=== PATIENT | female | born 2000 | race Two or more races ===

== ENCOUNTER 2020-11-16 16:43 | Outpatient (REF) | payer OTHER, SELFPAY | END 2020-11-16 16:44 | disposition home or self-care (01) | LOC: HO.LAB 16:43 | PROVIDERS: Visit Provider Nurse Practitioner Family | DX: R05 Cough (principal); Z20.822 Contact with and (suspected) exposure to COVID-19 | CPT/HCPCS: 36415; U0003 ==

== ENCOUNTER 2021-12-20 21:55 | Emergency (ER) | payer OTHER, MEDICAID, SELFPAY ==
--- NOTE | ~2021-12-20 | XR_ITS ---
EXAMINATION: XR HIP, RIGHT CLINICAL INFORMATION: Right hip pain COMPARISON: None TECHNIQUE: Single view pelvis with 2 additional views of the right hip. FINDINGS: Bones and soft tissues are normal. No fracture. Alignment is anatomic. Hip joint space is maintained. XR/XR hip RT min 2V IMPRESSION: Normal right hip.
[2021-12-20 22:00] VITALS: BP 121/66; PULSE 75; RESP 18; TEMP 36.8; O2SAT 97; BMI 46.8
--- NOTE | 2021-12-20 23:57 | ED.LOWEXIN ---
HPI - Extremity Injury (Lower) General Chief Complaint: Extremity Injury, Lower Stated Complaint: right hip and leg pain Source: patient Mode of arrival: ambulatory Limitations: no limitations History of Present Illness HPI Narrative: 21-year-old female presents with right hip pain radiating down her right leg for approximately 1 month. States that she has been seeing her primary care physician for this and has been receiving injections for pain. MD complaint: hip injury Onset (ago): month(s) Type of Injury: unknown Severity: moderate Severity scale (1-10): 7 Relieving factors: nothing Exacerbating factors: weight bearing, movement and palpation Associated symptoms: ambulatory Other symptoms: none Related Data Previous Rx's Medication Instructions Recorded azithromycin 250 mg tablet See Rx Instructions PO .COMPLEX #6 11/17/20 tab Allergies Allergy/AdvReac Type Severity Reaction Status Date / Time No Known Allergies Allergy Verified 12/20/21 22:00 Review of Systems Review of Systems: Constitutional: No Fever, No Chills ENT/Mouth: No Ear Pain, No Hoarseness, No sore throat Eyes: No Eye Pain, No Swelling, No Redness, No Foreign Body Cardiovascular: No Chest Pain, No SOB Respiratory: No Cough, No Dyspnea Gastrointestinal: No Nausea, No Vomiting, No Diarrhea, No abdominal Pain Genitourinary: No Dysuria, No Hematuria Musculoskeletal: positive right hip pain, No Myalgias, No Joint Swelling Skin: No Skin lacerations, No rash Neuro: No Weakness, No Numbness, No Paresthesias, No Loss of Consciousness, No Dizziness, No Headache Psych: No Anxiety/Panic, No Depression Heme/Lymph: no easy bruising, no Lymphadenopathy Endocrine: No Polyuria, No Polydipsia Yes all other systems are reviewed and are negative [facility] Past Medical History Attestation statement: The following information was validated with the patient. Source: old records reviewed Social History Social History Alcohol intake: never Patient Tobacco Use Status: Never used Tobacco Use of substances other than those prescribed or required for medical reasons: Yes Advance Directives: No Physical Exam Vital Signs: Vital Signs: Last Vital Signs Temp 98.3 F 12/20/21 22:00 Pulse 75 12/20/21 22:00 Resp 18 12/20/21 22:00 BP 121/66 12/20/21 22:00 Pulse Ox 97 12/20/21 22:00 BMI result Body Mass Index 46.8 Appearance: Alert. Oriented X3. No acute distress. Eyes: Pupils equal, round and reactive to light. ENT: Pharynx normal. Neck: Normal inspection. Neck supple. CVS: Normal heart rate and rhythm. Pulses normal. Respiratory: No respiratory distress. Breath sounds normal. Abdomen: Soft and nontender. Skin: Skin warm and dry. Normal skin color. Normal skin turgor. Extremities: No lower extremity edema. Gait well-balanced well coordinated. Neuro: No motor deficit. No sensory deficit. Cranial nerves 2-12 intact. Course Course Course Narrative: 21-year-old female presents with 1 month of right hip pain. Has been seeing her primary care physician in receiving cortisone injections with no effect. Will order x-rays at this time. Vital signs are stable and within normal limits. Patient is afebrile, appears nontoxic. 01:16 x-rays negative for acute findings requiring emergent intervention. Will give Toradol injection. Plan of care is for patient to follow-up with pain management. Patient verbalized understanding of and agrees to plan of care discharge home. Verbalized understanding of signs and symptoms indicating need for emergent intervention MDM - Extremity Injury (Lower) Differential Diagnosis Differential diagnosis: Likely fracture of hip Medical Records Attestation: I reviewed the patient's medical records. Imaging Data Right hip: Attestation: I personally reviewed and interpreted this imaging study as follows: Radiologist's impression: EXAMINATION: XR HIP, RIGHT CLINICAL INFORMATION: Right hip pain COMPARISON: None TECHNIQUE: Single view pelvis with 2 additional views of the right hip. FINDINGS: Bones and soft tissues are normal. No fracture. Alignment is anatomic. Hip joint space is maintained.? XR/XR hip RT min 2V IMPRESSION: Normal right hip. Discharge Plan Discharge Clinical Impression: Acute pain of right hip Patient Disposition: Home, Self-Care Instructions: Hip Pain (ED) Additional Instructions: You were evaluated for right-sided hip pain. X-rays are negative for acute findings requiring emergent intervention. You may consider following up with pain management. I referred her to Dr. Grant. Please call and request an appointment for evaluation. Thank you for choosing this emergency department for evaluation. Please follow-up with primary care physician as needed. Return to the emergency department for any new, concerning, or worsening symptoms. Prescriptions: No Action azithromycin 250 mg tablet See Rx Instructions PO .COMPLEX Qty: 6 0RF Rx Instructions: take 500 mg today (day 1), then 250 mg for 4 days (days 2-5) PO Referrals: Grover Grant MD [Physician] - 2 days (Right hip pain) Stand Alone Forms: Work/School Release
[2021-12-21] MEDS: Acetaminophen 325 MG TABLET 650 MG PO (00:42)
[2021-12-21] MEDS: Ketorolac Tromethamine 60 MG/2 ML VIAL IM (01:31)
== END 2021-12-21 01:35 | disposition home or self-care (01) ==
PROVIDERS: Emergency Provider Emergency Medicine; PCP Family Medicine
DX: M25.551 Pain in right hip (principal); M79.604 Pain in right leg; Z79.899 Other long term (current) drug therapy
CPT/HCPCS: 73502; 96372; 99284; J1885

== ENCOUNTER 2022-02-03 19:17 | Emergency (ER) | payer OTHER, MEDICAID, SELFPAY ==
--- NOTE | ~2022-02-03 | XR_ITS ---
EXAMINATION: XR chest 2V CLINICAL INFORMATION: Reason for Exam cough COMPARISON: Chest radiograph 06/18/2019 TECHNIQUE: 2 views of the chest XR/XR chest 2V FINDINGS/IMPRESSION: Clear lungs. No pneumothorax. No pleural effusion. Normal cardiomediastinal silhouette.
[2022-02-03 19:32] VITALS: BP 113/83; PULSE 109; RESP 16; TEMP 38.3; O2SAT 97; BMI 44.9
[2022-02-03 19:57] LABS: COVID-19 Test Negative (Negative); IDNOW Serial# 55D5AD1C
[2022-02-03 19:59] LABS: Influenza A Negative (Negative); Influenza B2 Negative (Negative)
[2022-02-03 20:11] VITALS: TEMP 38.6
[2022-02-03] MEDS: Acetaminophen 325 MG TABLET 650 MG PO (20:15)
[2022-02-03 20:22] LABS: Glucose, Whole Blood 93 mg/dL (60-115)
[2022-02-03 21:29] VITALS: BP 128/72; PULSE 106; RESP 16; TEMP 38.7; O2SAT 94
[2022-02-03] MEDS: Ibuprofen 600 MG TABLET PO (21:37)
--- NOTE | 2022-02-03 22:12 | ED.GENADULT ---
HPI - General Adult General Chief complaint: General Medical Stated complaint: SoB, asthma, pre diabetic Time Seen by Provider: 02/03/22 22:05 Source: patient Mode of arrival: ambulatory History of Present Illness HPI narrative: 21-year-old female with history of asthma presents with body aches, sore throat, cough since yesterday also with associated fevers/chills and 1 episode it nausea and vomiting this morning that is since resolved. She denies any urinary symptoms and otherwise denies diarrhea. Related Data Previous Rx's Medication Instructions Recorded azithromycin 250 mg tablet See Rx Instructions PO .COMPLEX #6 11/17/20 tab Allergies Allergy/AdvReac Type Severity Reaction Status Date / Time No Known Allergies Allergy Verified 12/20/21 22:00 Review of Systems Review of Systems: Pertinent positives and negatives as stated in HPI 10 point review of systems is otherwise negative. PMFSH Past Medical History Source: nursing notes reviewed Social History Social History Alcohol intake: never Patient Tobacco Use Status: Never used Tobacco Advance Directives: No Physical Exam ED Vital Signs: Vital Signs - 24 hr 02/03/22 19:32 02/03/22 20:11 02/03/22 21:29 Temperature 100.9 F H 101.4 F H 101.6 F H Pulse Rate 109 H 106 H Respiratory Rate 16 16 Blood Pressure 113/83 128/72 Pulse Oximetry 97 94 02/03/22 22:38 Temperature 99.2 F Pulse Rate Respiratory Rate Blood Pressure Pulse Oximetry BMI result Body Mass Index 44.9 VITAL SIGNS: Reviewed. GENERAL: Well developed, well nourished, in no acute distress. HEAD: Normocephalic/atraumatic EYES: PERRLA, EOMI EARS: Ext canals without abnormality, TMs non-bulging and non-erythematous NOSE: Nares patent bilateral OROPHARYNX: no oral lesions noted, posterior pharynx with erythema and noted tonsillar enlargement/erythema without exudates NECK: Supple, no adenopathy LUNGS: Normal breath sounds, no wheeze/rhonchi/rales and no tachypnea. SpO2<97> CARDIOVASCULAR: Regular rate and rhythm without noted murmurs ABDOMEN: Soft, non-tender, non-distended with bowel sounds. SKIN: Inspection of the skin reveals no rashes NEUROLOGIC: Alert and oriented x 4. Strength and sensation to light touch were grossly intact x 4. Course Course Course Narrative: 21-year-old female with history and clinical presentation consistent with viral syndrome but possible pharyngitis. Patient was noted to be febrile and has received Tylenol as well as ibuprofen for temperature control. Review of all investigations otherwise negative for acute findings and patient declining strep testing and review of chest x-ray without acute findings. Patient was discharged home stable condition with presumptive treatment for viral syndrome. Medical Decision Making Lab Data Labs: Lab Results 02/03/22 02/03/22 02/03/22 Range/Units 19:37 19:37 20:18 POC Glucose 93 (60-115) mg/dL COVID-19 ([facility]) Negative (Negative) COVID-19 Clin Com See Note Influenza Type A ([facility]) Negative (Negative) Influenza Type B ([facility]) Negative (Negative) Influenza A & B Note See Note Discharge Plan Discharge Clinical Impression: Viral syndrome Patient Disposition: Home, Self-Care Instructions: Viral Syndrome (ED) Additional Instructions: 1. Recommend rest, increase fluid hydration especially with water, and using [id number] Tylenol/ibuprofen to control your body aches and temperatures greater than 100.4. 2. Follow-up with primary care provider in the next 2-3 days for re-evaluation Return to the ER for worsening symptoms. Prescriptions: No Action azithromycin 250 mg tablet See Rx Instructions PO .COMPLEX Qty: 6 0RF Rx Instructions: take 500 mg today (day 1), then 250 mg for 4 days (days 2-5) PO Referrals: Aniyah Braun, JAMILA, [employer] SALESPERSON, [employer]PLIANCE ADJUSTER[employer] [Primary Care Provider] - Stand Alone Forms: Work/School Release
[2022-02-03 22:38] VITALS: TEMP 37.3
[2022-02-03 23:10] LABS: Strep A Nucleic Acid Negative (Negative)
== END 2022-02-03 23:08 | disposition home or self-care (01) ==
PROVIDERS: Emergency Provider Student in an Organized Health Care Education/Training Program; PCP Registered Nurse
DX: B34.9 Viral infection, unspecified (principal); J45.909 Unspecified asthma, uncomplicated; R06.02 Shortness of breath; R73.03 Prediabetes; M79.10 Myalgia, unspecified site; Z20.822 Contact with and (suspected) exposure to COVID-19
CPT/HCPCS: 36415; 71046; 82947; 87502; 87635; 87651; 99283; 99284

== ENCOUNTER 2022-11-24 23:03 | Emergency (ER) | payer OTHER, SELFPAY ==
--- NOTE | ~2022-11-24 | XR_ITS ---
EXAMINATION: XR WRIST, RIGHT CLINICAL INFORMATION: Fall COMPARISON: None TECHNIQUE: PA, lateral, and oblique views of the right wrist. FINDINGS: Minimally displaced fracture of the radius with possible intra-articular extension. There is soft tissue swelling about the wrist. Scaphoid appears unremarkable XR/XR wrist RT min 3V IMPRESSION: Minimally displaced fracture of the radius with possible intra-articular extension. There is unremarkable, if there is concern for scaphoid injury, follow-up films in 7-[address] scan may be obtained
[2022-11-24 23:15] VITALS: BP 121/63; PULSE 93; RESP 19; TEMP 36; O2SAT 98; BMI 49.1
--- NOTE | 2022-11-25 00:34 | ED_ITS ---
HPI - Extremity Problem General Chief complaint: Extremity Injury, Upper Stated complaint: Wrist pain/swelling Time Seen by Provider: 11/25/22 00:29 Source: patient Mode of arrival: ambulatory Limitations: no limitations History of Present Illness HPI Narrative: fell at home c/o rt wrist pain Complaint: extremity pain Onset (ago): hour(s) (2) Pain Consistency: constant Location: right and other (wrist) Quality: aching Radiation: none Relieving factors: nothing Exacerbating factors: range of motion Related Data Previous Rx's Medication Instructions Recorded azithromycin 250 mg tablet See Rx Instructions PO .COMPLEX #6 11/17/20 tabs Allergies Allergy/AdvReac Type Severity Reaction Status Date / Time No Known Allergies Allergy Verified 11/24/22 23:17 Review of Systems ENT: Reports system reviewed and no additional complaints, except as documented Cardiovascular: Cardiovascular: Reports no additional cardiovascular complaints Respiratory: Respiratory: Reports no additional respiratory complaints [facility] Past Medical History [facility] Narrative: denies Social History Social History Alcohol intake: never Patient Tobacco Use Status: Never used Tobacco Advance Directives: No Advance Directives Information Provided: Yes Physical Exam Vital Signs: Vital Signs: Last Vital Signs Temp 96.8 F 11/24/22 23:15 Pulse 93 11/24/22 23:15 Resp 19 11/24/22 23:15 BP 121/63 11/24/22 23:15 Pulse Ox 98 11/24/22 23:15 O2 Del Method 11/24/22 23:15 BMI result Body Mass Index 49.1 Const: General: cooperative Nutritional Appearance: average body habitus Orientation/consciousness: patient oriented x3 Limitations: no limitations HEENT: Head: Yes normal to inspection General nose exam: Normal external nose present Face and sinus: Yes normal facial exam Neck: Neck: Yes normal visual inspection Chest: Chest palpation & inspection: normal inspection of the chest Resp: Effort & Inspection: normal respiratory effort Auscultation: clear to auscultation bilaterally Cardio: Jugular venous distension: no JVD Rate: regular rate Rhythm: regular rhythm GI: Inspection: Yes normal to inspection Palpation (GI): Soft to palpation, not firm, nontender and no guarding Percussion: Yes normal to percussion Auscultation: normal bowel sounds Skin: General skin exam: no rashes or lesions noted and elasticity normal Lesions: no lesions Rashes: no rashes Neuro: General: patient oriented x3 Extrem: Other: tenderness rt distal wrist decrease rom,good perfusion Course Reevaluation(s) Reevaluation #1: splint applied OK to d/c Time: 00:52 Medical Decision Making Medical Decision Making [facility] Narrative: c/o rt wrist pain after a fall will get xray Differential Diagnosis Differential Diagnoses: The differential diagnosis associated with the presentation includes fx/contusion Independent Interpretation I performed an independent interpretation of an: Plain X-Ray Interpretation: read by me as well Radiology Impression Radiologist Impression: CLINICAL INFORMATION: Fall? COMPARISON: None? TECHNIQUE: PA, lateral, and oblique views of the right wrist. FINDINGS: Minimally displaced fracture of the radius with possible intra-articular extension. There is soft tissue swelling about the wrist. Scaphoid appears unremarkable XR/XR wrist RT min 3V IMPRESSION: Minimally displaced fracture of the radius with possible intra-articular extension. There is unremarkable, if there is concern for scaphoid injury, follow-up films in 7-[address] scan may be obtained ? Dictated By: Natasha Gomez MD Signed By: <Electronically signed by Natasha Gomez MD in [place]> 11/24/22 2346 DD/ 2335 Procedures Orthopedic Splinting/Casting Injury #1: Side: right Upper Extremity Injury Location: wrist Upper Extremity Immobilizer: volar splint Additional Comments: splint applied by siddhartha under my supervision,good circulation at the end Discharge Plan Discharge Clinical Impression: Fracture of wrist Patient Disposition: Home, Self-Care Instructions: Wrist Fracture in Adults (ED) Additional Instructions: call Dr Guevara office and make an appointment for follow up,keep splint on till you see Dr Guevara Prescriptions: No Action azithromycin 250 mg tablet See Rx Instructions PO .COMPLEX Qty: 6 0RF Rx Instructions: take 500 mg today (day 1), then 250 mg for 4 days (days 2-5) PO Referrals: Luis Miguel Guevara MD [Physician] - 12/05/22
[2022-11-25] MEDS: Ibuprofen 800 MG TABLET PO (00:55)
== END 2022-11-25 00:57 | disposition home or self-care (01) ==
PROVIDERS: Emergency Provider Emergency Medicine; PCP Registered Nurse
DX: S52.501A Unspecified fracture of the lower end of right radius, initial encounter for closed fracture (principal); X58.XXXA Exposure to other specified factors, initial encounter; Y93.9 Activity, unspecified; Y92.9 Unspecified place or not applicable; Y99.9 Unspecified external cause status; Z79.899 Other long term (current) drug therapy
CPT/HCPCS: 29125; 73110; 99284

== ENCOUNTER 2022-11-29 15:08 | Outpatient (REF) | payer OTHER, SELFPAY ==
--- NOTE | ~2022-11-29 | XR_ITS ---
EXAMINATION: XR WRIST, RIGHT CLINICAL INFORMATION: Pain in the right wrist. COMPARISON: 11/24/2022 TECHNIQUE: PA, lateral, oblique, and scaphoid views of the right wrist. FINDINGS: The bones and soft tissues are normal. No fracture. Alignment is anatomic with normal joint spaces. No erosions or abnormal soft tissue calcifications. XR/XR wrist RT w scaphoid IMPRESSION: Normal radiograph of the right wrist. If symptoms persist, consider correlation with MRI.
== END 2022-11-29 15:09 | disposition home or self-care (01) ==
LOC: HO.HOSX 15:08
PROVIDERS: PCP Registered Nurse; Visit Provider Orthopaedic Surgery
DX: S52.501A Unspecified fracture of the lower end of right radius, initial encounter for closed fracture (principal); W10.9XXA Fall (on) (from) unspecified stairs and steps, initial encounter; Y93.9 Activity, unspecified; Y92.9 Unspecified place or not applicable; Y99.9 Unspecified external cause status
CPT/HCPCS: 73110; 99202

== ENCOUNTER 2022-12-03 15:42 | Emergency (ER) | payer OTHER, SELFPAY ==
[2022-12-03 15:55] VITALS: BP 132/75; PULSE 79; RESP 20; TEMP 36.8; O2SAT 99; BMI 50.8
--- NOTE | 2022-12-03 16:07 | ED.GENADULT ---
HPI - General Adult General Chief complaint: Extremity Problem Stated complaint: Cast removal Time Seen by Provider: 12/03/22 16:07 Source: patient and other (fiance) Mode of arrival: ambulatory Limitations: no limitations History of Present Illness HPI narrative: Patient is a 22 year old assigned female at with no reported medical history presenting to the emergency department today requesting to have her right wrist cast removed. Patient states that she has a right wrist fracture and had a cast placed 4 days ago. Patient states that the cast feels too tight around the radial aspect of her wrist and she would like to get it off and have it replaced with a splint. Patient denies any dizziness, lightheadedness, abdominal pain, nausea, vomiting, fever, chills, blurry vision, double vision, loss of vision, chest pain, difficulty breathing, shortness of breath, back pain, night sweats, pain with urination, increased urinary frequency, increased urinary urgency, blood in her urine or stool, syncope or a near syncopal episode, bowel incontinence, bladder incontinence, bowel retention, bladder retention, or any other complaints at this time. Onset (ago): day(s) (4) Location: right and upper extremity Radiation: non-radiation Severity: mild Severity scale (1-10): 2 Quality: aching Pain Consistency: constant Relieving factors: none Exacerbating factors: none Associated symptoms: denies other symptoms Treatments prior to arrival: none Related Data Allergies Allergy/AdvReac Type Severity Reaction Status Date / Time No Known Allergies Allergy Verified 11/29/22 15:31 Review of Systems Constitutional: Constitutional: Reports no additional constitutional complaints, Denies chills, Denies fever(s) and Denies night sweats Eyes: Eyes: Reports no additional eye complaints, Denies blurry vision, Denies change in vision, Denies diplopia, Denies eye discharge, Denies loss of vision and Denies eye pain ENT: Denies dizziness Cardiovascular: Cardiovascular: Reports no additional cardiovascular complaints, Denies chest pain, Denies lightheadedness, Denies Loss of Consciousness and Denies dyspnea Respiratory: Respiratory: Reports no additional respiratory complaints and Denies dyspnea Gastrointestinal: Gastrointestinal: Reports no additional gastrointestinal complaints, Denies abdominal pain, Denies melena, Denies hematochezia, Denies change in bowel habits and Denies change in stool character Genitourinary: Genitourinary: Denies hematuria, Denies urinary frequency, Denies dysuria, Denies urinary incontinence, Denies urinary hesitancy and Denies urinary urgency Musculoskeletal: Musculoskeletal: Reports no additional musculoskeletal complaints, Denies numbness and Denies tingling Comments: right wrist pain Neurologic: Denies dizziness, Denies loss of vision, Denies numbness and Denies tingling Psychiatric: Psychiatric: Reports no additional psychiatric complaints Endocrine: Endocrine: Reports no additional endocrine complaints Hematologic/Lymphatic: Hematologic/Lymphatic: Reports no additional hematologic/lymphatic complaints Allergic/Immunologic: Allergic/Immunologic: Reports no additional allergic/immunologic complaints [facility] Past Medical History Attestation statement: The following information was validated with the patient. Source: old records reviewed and nursing notes reviewed Medical History Pre-diabetes Social History Social History Alcohol intake: never Patient Tobacco Use Status: Never used Tobacco Advance Directives: No Advance Directives Information Provided: No Current occupational status: employed Current occupation: STRUCTURAL STEEL ERECTOR/ rt hand Physical Exam ED Vital Signs: Vital Signs - 24 hr 12/03/22 15:55 Temperature 98.3 F Pulse Rate 79 Respiratory Rate 20 Blood Pressure 132/75 Pulse Oximetry 99 Oxygen Delivery Method Room Air BMI result Body Mass Index 50.8 Const General: cooperative, no acute distress, alert and awake Nutritional Appearance: well nourished Orientation/consciousness: patient oriented x3 Limitations: no limitations HENMT Head: Yes normal to inspection and Yes atraumatic Ears: hearing grossly normal bilaterally and external ears normal General nose exam: Normal external nose present, no nasal discharge noted and no epistaxis Face and sinus: Yes normal facial exam, No abrasion and No laceration Mouth: Normal oral and palatal mucosa present, no drooling and no muffled voice Eyes General: appearance normal, both eyes and all related structures Periorbital: periorbital findings normal Eyelids: Yes eyelids normal Conjunctivae: conjunctivae normal Pupils: Equal, round and reactive pupils present EOM: EOMs intact bilaterally Neck Neck: Yes normal visual inspection, Yes full ROM and Yes no lymphadenopathy Chest Chest palpation & inspection: normal inspection of the chest Resp Effort & Inspection: normal respiratory effort and able to speak in complete sentences Auscultation: clear to auscultation bilaterally Cardio Rate: regular rate Rhythm: regular rhythm GI Inspection: Yes normal to inspection Neuro General: patient oriented x3 and moves all extremities Cranial nerves: Yes Equal, round and reactive pupils present Cognition (Neuro): normal cognition Motor exam (neuro): 5/5 motor strength present throughout Sensory Exam: Normal double simultaneous stimulation for sensation Coordination: [id number] test normal Extrem Other: cast present to the right wrist General: Yes capillary refill normal Psych Appearance: grossly normal Mental Status: mental status grossly normal Affect: normal affect Attitude: cooperative Thought process: Normal thought process present Thought content: Normal thought content present Insight: Good insight present (Psych) Procedures Cast Removal Reason for procedure: too tight Cut saw used: Yes Cast procedure: removal Post Removal Neuro Exam: intact and no change Post Removal Vascular Exam: intact and no change Patient Tolerated Procedure: well Orthopedic Splinting/Casting Injury #1: Side: right Upper Extremity Injury Location: wrist Upper Extremity Immobilizer: sling/shoulder immobilizer and sugar tong splint Medical Decision Making Medical Decision Making MDM Narrative: Patient is a 22 year old assigned female at with no reported medical history presenting to the emergency department today with right wrist pain. Patient's physical exam showed a cast present to the right wrist but was otherwise unremarkable. I explained my physical exam findings to the patient and the patient's fiance. I answered all questions asked by the patient and the patient's fiance. Patient's cast was removed, without incident. I placed a sugar tong splint on the patient's right wrist. I spoke to ortho who confirmed they would see the patient on Monday for a replacement cast. I stressed the importance of the patient taking her medication as prescribed. I stressed the importance of the patient following up with her primary care provider and an orthopedic provider. I stressed the importance of the patient returning to the emergency department immediately if her symptoms were to worsen or if she were to develop any dizziness, shortness of breath, difficulty breathing, chest pain, blurry vision, loss of vision, nausea, vomiting, abdominal pain, fever, chills, back pain, or any other complaints. Patient verbalized agreement and understanding with this treatment plan and discharge. Differential Diagnosis Differential Diagnoses: The differential diagnosis associated with the presentation includes right wrist pain, tight wrist cast Consult Healthcare Provider Management of the patient was discussed with: Director Of Manufacturing Operations (spoke to the orthopedic provider simulation technician who recommended the patient have the cast removed, splint placed, and follow up on Monday) Discharge Plan Discharge Clinical Impression: Fracture of wrist Patient Disposition: Home, Self-Care Instructions: Wrist Fracture in Adults (ED) Additional Instructions: Follow up with your primary care provider. Return to the emergency department immediately if your symptoms worsen or if you develop any dizziness, shortness of breath, difficulty breathing, chest pain, blurry vision, loss of vision, nausea, vomiting, abdominal pain, fever, chills, back pain, or any other complaints. Referrals: [facility] [Provider Group] (Call to follow up on Monday morning. ) Aniyah Braun DNP [Primary Care Provider] - Interventions: ED Discharge Assessment Last Done: 12/03/22 16:38 Discharge Date/Time: 12/03/22 16:39 Print Language: [place]al[place]
== END 2022-12-03 16:39 | disposition home or self-care (01) ==
PROVIDERS: Emergency Provider Emergency Medicine; PCP Registered Nurse
DX: M25.531 Pain in right wrist (principal); S62.101D Fracture of unspecified carpal bone, right wrist, subsequent encounter for fracture with routine healing; X58.XXXD Exposure to other specified factors, subsequent encounter
CPT/HCPCS: 29125; 99282; 99283; 99284

== ENCOUNTER 2022-12-05 12:39 | Outpatient (REF) | payer OTHER, SELFPAY ==
--- NOTE | ~2022-12-05 | XR_ITS ---
EXAMINATION: XR WRIST, RIGHT CLINICAL INFORMATION: M25.531 - Pain in right wrist. Recent fall/trauma. COMPARISON: The right wrist radiographs 11/29/2022, 11/24/2022 TECHNIQUE: PA, lateral, and oblique views of the right wrist. FINDINGS: There is no acute or healing fracture, dislocation, or destructive process. No callus formation or periostitis. No joint narrowing or erosive change or chondrocalcinosis. Pronator quadratus fat pad appears normal. XR/XR wrist RT min 3V IMPRESSION: No acute or healing fracture.
== END 2022-12-05 12:40 | disposition home or self-care (01) ==
LOC: HO.HOSX 12:39
PROVIDERS: PCP Registered Nurse; Visit Provider Orthopaedic Surgery
DX: S52.501A Unspecified fracture of the lower end of right radius, initial encounter for closed fracture (principal); X58.XXXA Exposure to other specified factors, initial encounter; Y93.9 Activity, unspecified; Y92.9 Unspecified place or not applicable; Y99.9 Unspecified external cause status
CPT/HCPCS: 73110

== ENCOUNTER 2022-12-22 13:32 | Outpatient (REF) | payer OTHER, SELFPAY ==
--- NOTE | ~2022-12-22 | XR_ITS ---
EXAMINATION: XR WRIST, RIGHT CLINICAL INFORMATION: Pain. COMPARISON: Radiographs dated 12/05/2022. TECHNIQUE: PA, lateral, and oblique views of the right wrist. FINDINGS: The bones and soft tissues are normal. No fracture. Alignment is anatomic with normal joint spaces. No erosions or abnormal soft tissue calcifications. XR/XR wrist RT min 3V IMPRESSION: Normal right wrist.
== END 2022-12-22 13:33 | disposition home or self-care (01) ==
LOC: HO.HOSX 13:32
PROVIDERS: PCP Registered Nurse; Visit Provider Physician Assistant
DX: S52.501D Unspecified fracture of the lower end of right radius, subsequent encounter for closed fracture with routine healing (principal); X58.XXXD Exposure to other specified factors, subsequent encounter
CPT/HCPCS: 73110; 99212

== ENCOUNTER 2022-12-27 09:30 | Outpatient (REF) | payer OTHER, SELFPAY | END 2022-12-27 09:31 | disposition home or self-care (01) | LOC: HO.HOSX 09:30 | PROVIDERS: Visit Provider Orthopaedic Surgery | DX: Z13.89 Encounter for screening for other disorder (principal) ==

== ENCOUNTER 2023-01-06 09:55 | Outpatient (REF) | payer OTHER, SELFPAY ==
--- NOTE | ~2023-01-06 | XR_ITS ---
EXAMINATION: XR WRIST, RIGHT CLINICAL INFORMATION: Pain COMPARISON: Prior radiographs 12/22/2022, 12/05/2022 and 11/29/2022 TECHNIQUE: PA, lateral, and oblique views of the right wrist. FINDINGS: No acute fracture or dislocation appreciated. Joint spaces are maintained. Soft tissues are unremarkable. XR/XR wrist RT min 3V IMPRESSION: No acute osseous abnormality appreciated however given persistence of symptoms further evaluation with CT or MR wrist should be considered.
== END 2023-01-06 09:56 | disposition home or self-care (01) ==
LOC: HO.HOSX 09:55
PROVIDERS: Visit Provider Physician Assistant
DX: S52.501A Unspecified fracture of the lower end of right radius, initial encounter for closed fracture (principal)
CPT/HCPCS: 73110; 99212

== ENCOUNTER 2024-07-24 14:28 | Emergency (ER) | payer OTHER, SELFPAY ==
--- NOTE | ~2024-07-24 | US_ITS ---
EXAMINATION: US TRIPLEX UPPER EXTREMITY, RIGHT CLINICAL INFORMATION: Right upper extremity pain COMPARISON: None available. TECHNIQUE: Color-flow triplex imaging with spectral analysis and compression Doppler was performed on the right upper extremity. FINDINGS: The right internal jugular, subclavian, and axillary veins are patent and free of thrombus. The imaged segment of the right brachiocephalic vein is patent. Spectral doppler waveforms are normal. The brachial, basilic, cephalic, radial, and ulnar veins are patent and compressible. US/US venous duplex UE RT IMPRESSION: No evidence of deep venous thrombosis involving the right upper extremity. Electronically signed by: Josue Denton MD 07/24/2024 06:51 PM EDT
--- NOTE | ~2024-07-24 | XR_ITS ---
EXAMINATION: XR HAND, RIGHT CLINICAL INFORMATION: Right thumb pain COMPARISON: None available. TECHNIQUE: PA, lateral, and oblique views of the right hand. FINDINGS: The bones and soft tissues are normal. No fracture. Alignment is anatomic. Joint spaces are maintained. No erosions or soft tissue calcifications. XR/XR hand RT min 3V IMPRESSION: Normal right hand. Electronically signed by: Jose Venegas MD 07/24/2024 03:48 PM EDT
[2024-07-24 14:30] VITALS: BP 128/76; PULSE 76; RESP 16; TEMP 36.1; O2SAT 96; BMI 52.7
--- NOTE | 2024-07-24 14:34 | ED_ITS ---
HPI - General Adult General Chief complaint: Extremity Injury, Upper Stated complaint: r hand pain-fractured prior Time Seen by Provider: 07/24/24 16:03 History of Present Illness HPI narrative: note already written Related Data Previous Rx's ?Medication ?Instructions ?Recorded naproxen 500 mg tablet 500 mg PO BID PRN pain 7 days #14 07/24/24 tabs prednisone 20 mg tablet 40 mg (2 x 20 mg) PO DAILY 5 days 07/24/24 #10 tabs Allergies Allergy/AdvReac Type Severity Reaction Status Date / Time No Known Allergies Allergy Verified 07/24/24 14:36 [facility] Past Medical History Medical History Pre-diabetes Social History Social History Alcohol intake: never Patient Tobacco Use Status: Never used Tobacco Current occupational status: employed Current occupation: SUPPLY CHAIN GENERALIST/ rt hand Physical Exam ED Vital Signs: BMI result Body Mass Index 52.7 Course Course Course Narrative: This is a rapid medical exam performed by Tomas Stein NP: Additional HPI, ROS, PE not included below will be deferred to primary provider. Patient is a 24-year-old female presenting with right hand pain to anterior wrist and thumb, after playing video game for 5 mins. Hx of fracture to same hand. Denies recent injury. Plan: xray Discharge Plan Discharge Clinical Impression: Sprain of wrist, right, Carpal tunnel syndrome Patient Disposition: Home, Self-Care Instructions: Wrist Sprain (ED) Additional Instructions: History physical exam indicate more wrist sprain versus carpal tunnel syndrome. Recommend follow-up with orthopedic surgeon and primary care provider. Return to the ED immediately for severe pain, swelling, redness, bluish black discoloration, hotness, coldness, fever, chills, chest pain, shortness of breath, numbness/tingling, or any other concerning symptoms. FINDINGS: The bones and soft tissues are normal. No fracture. Alignment is anatomic. Joint spaces are maintained. No erosions or soft tissue calcifications. XR/XR hand RT min 3V IMPRESSION: Normal right hand. Electronically signed by: Jose Venegas MD 07/24/2024 03:48 PM EDT FINDINGS: The right internal jugular, subclavian, and axillary veins are patent and free of thrombus. The imaged segment of the right brachiocephalic vein is patent. Spectral doppler waveforms are normal. The brachial, basilic, cephalic, radial, and ulnar veins are patent and compressible. US/US venous duplex UE RT IMPRESSION: No evidence of deep venous thrombosis involving the right upper extremity. Electronically signed by: Josue Denton MD 07/24/2024 06:51 PM EDT Prescriptions: New naproxen 500 mg tablet 500 mg PO BID PRN (Reason: pain) 7 Days Qty: 14 0RF prednisone 20 mg tablet 40 mg PO DAILY 5 Days Qty: 10 0RF Referrals: [facility] [Provider Group] (Right wrist sprain versus carpal tunnel syndrome) Stand Alone Forms: Work/School Release Interventions: ED Discharge Assessment Last Done: 07/24/24 19:40 Discharge Date/Time: 07/24/24 19:40 Print Language: Cook Islander
--- NOTE | 2024-07-24 16:53 | ED_ITS ---
HPI - General Adult General Chief complaint: Extremity Injury, Upper Stated complaint: r hand pain-fractured prior Time Seen by Provider: 07/24/24 16:03 Source: patient Mode of arrival: ambulatory Limitations: no limitations History of Present Illness ED Provider: Corona Conklin HPI narrative: 24 yoldf female with pmh of right wirst fracture presents to the ED for right wrist/forearm pain pain withtou trauma for week. Patient denies any recent trauma. 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 Patient denies any chest pain or shortness of breath. Related Data Previous Rx's ?Medication ?Instructions ?Recorded naproxen 500 mg tablet 500 mg PO BID PRN pain 7 days #14 07/24/24 tabs prednisone 20 mg tablet 40 mg (2 x 20 mg) PO DAILY 5 days 07/24/24 #10 tabs Allergies Allergy/AdvReac Type Severity Reaction Status Date / Time No Known Allergies Allergy Verified 07/24/24 14:36 Review of Systems 2 Review of Systems: Right wrist forearm pain Yes all other systems are reviewed and are negative [facility] Past Medical History Medical History Pre-diabetes Social History Social History Alcohol intake: never Patient Tobacco Use Status: Never used Tobacco Advance Directives: No Advance Directives Information Provided: No Do you have a plan to hurt others: No Plan Current occupational status: employed Current occupation: CORRESPONDENCE COORDINATOR/ rt hand Physical Exam ED Vital Signs: Vital Signs - 24 hr 07/24/24 14:30 07/24/24 17:19 07/24/24 19:40 Temperature 97.0 F 98.4 F 98.4 F Pulse Rate 76 74 74 Respiratory Rate 16 16 16 Blood Pressure 128/76 121/59 L 121/59 L Pulse Oximetry 96 99 99 Oxygen Delivery Method Room Air Room Air Room Air BMI result Body Mass Index 52.7 Const General: cooperative, healthy appearing, comfortable, no acute distress, well developed, alert, awake and Physically active Orientation/consciousness: patient oriented x3 HENMT Head: Yes normal to inspection, Yes No palpable skull fracture present, Yes normocephalic, Yes atraumatic and No abrasion Eyes General: appearance normal, both eyes and all related structures Neck Neck: Yes normal visual inspection, Yes full ROM, Yes no lymphadenopathy, Yes no meningeal signs, Yes trachea midline, Yes supple, No anterior neck swelling and No tender Chest Chest palpation & inspection: normal inspection of the chest and normal palpation of entire chest wall Resp Effort & Inspection: normal respiratory effort and able to speak in complete sentences Cardio Jugular venous distension: no JVD Heart sounds: S1 normal heart sound present and S2 normal heart sound present GI Inspection: Yes normal to inspection Palpation (GI): Soft to palpation, not firm, nontender, no guarding and not rigid General: Yes no CVA tenderness Back/Spine/Pelvis Back: no CVA tenderness and No back tenderness Skin General skin exam: no rashes or lesions noted, elasticity normal and turgor normal Neuro General: patient oriented x3, gait normal, tone normal, moves all extremities, Normal light touch and pain sensation, no meningeal signs, no focal motor deficits, CN's II-XI intact bilaterally and normal sensation to monofilament Extrem General: Yes normal to inspection, Yes full ROM and Yes capillary refill normal Elbow/forearm/wrist images: 2 1. Positive for tenderness on palpation. Negative for erythema, swelling, crepitus, deformity, hotness, coldness, or red streaks. Positive Phalen's/Tinel sign. Rest of extremity normal. Motor/neuro/vascular exam intact. Psych Appearance: grossly normal and well kempt Medical Decision Making Medical Decision Making MDM Narrative: 24-year-old female with right wrist right forearm pain without any trauma. Differential wrist sprain, carpal tunnel, restless chronic pain. X-ray negative for fracture. Will send for ultrasound rule out DVT. 7:10pm: ultrasound negative for DVT. Patient will be placed in velcor splint. Patient informed to follow up with PCP and orthopedic surgeon. not suspecting DVT, osteomyelitits, , cellulitits, arterial occlusion, compartment syndrome, or fracture. Differential Diagnosis Differential Diagnoses: The differential diagnosis associated with the presentation includes (wrist strain, carpe tunnel syndrome, fracutre) Admission/Observation Consideration of admission/observation: Escalation of care including admission/observation considered Independent Interpretation I performed an independent interpretation of an: Plain X-Ray and Ultrasound Radiology Impression Discussion of test interpretation with radiology: I have reviewed the radiologist's reading. Independent Historian Clinical information obtained from an independent historian. History obtained from or confirmed by: Other (patient) External Record Review External record reviewed: Other (prior vists) Prescription Management I considered prescription management with: Pain Medication Discharge Plan Discharge Clinical Impression: Sprain of wrist, right, Carpal tunnel syndrome Patient Disposition: Home, Self-Care Instructions: Wrist Sprain (ED) Additional Instructions: History physical exam indicate more wrist sprain versus carpal tunnel syndrome. Recommend follow-up with orthopedic surgeon and primary care provider. Return to the ED immediately for severe pain, swelling, redness, bluish black discoloration, hotness, coldness, fever, chills, chest pain, shortness of breath, numbness/tingling, or any other concerning symptoms. FINDINGS: The bones and soft tissues are normal. No fracture. Alignment is anatomic. Joint spaces are maintained. No erosions or soft tissue calcifications. XR/XR hand RT min 3V IMPRESSION: Normal right hand. Electronically signed by: Jose Venegas MD 07/24/2024 03:48 PM EDT RP FINDINGS: The right internal jugular, subclavian, and axillary veins are patent and free of thrombus. The imaged segment of the right brachiocephalic vein is patent. Spectral doppler waveforms are normal. The brachial, basilic, cephalic, radial, and ulnar veins are patent and compressible. US/US venous duplex UE RT IMPRESSION: No evidence of deep venous thrombosis involving the right upper extremity. Electronically signed by: Josue Denton MD 07/24/2024 06:51 PM EDT Prescriptions: New naproxen 500 mg tablet 500 mg PO BID PRN (Reason: pain) 7 Days Qty: 14 0RF prednisone 20 mg tablet 40 mg PO DAILY 5 Days Qty: 10 0RF [place]: [facility] [place] [facility] [place] Group] (Right wrist sprain versus carpal tunnel syndrome) Stand Alone Forms: Work/School Release Interventions: ED Discharge Assessment Last Done: 07/24/24 19:40 Discharge Date/Time: 07/24/24 19:40 Print Language: Cam[place]onian
[2024-07-24 17:19] VITALS: BP 121/59; PULSE 74; RESP 16; TEMP 36.9; O2SAT 99
[2024-07-24 19:40] VITALS: BP 121/59; PULSE 74; RESP 16; TEMP 36.9; O2SAT 99
== END 2024-07-24 19:40 | disposition home or self-care (01) ==
PROVIDERS: Emergency Provider Internal Medicine; PCP Internal Medicine
DX: S63.501A Unspecified sprain of right wrist, initial encounter (principal); X50.9XXA Other and unspecified overexertion or strenuous movements or postures, initial encounter; G56.01 Carpal tunnel syndrome, right upper limb; M79.631 Pain in right forearm; Y93.C2 Activity, hand held interactive electronic device; Y92.9 Unspecified place or not applicable; Y99.9 Unspecified external cause status
CPT/HCPCS: 29515; 73130; 93971; 99284